=== PATIENT | male | born 2005 | race Two or more races ===

== ENCOUNTER 2024-10-30 02:02 | Emergency (ER) | payer OTHER ==
[~2024-10-30] VITALS: Ht 175.3 cm; Wt 71.8 kg
[2024-10-30 02:45] VITALS: BP 106/70; PULSE 107; RESP 14; TEMP 97.9; O2SAT 98
--- NOTE | 2024-10-30 03:05 | ED.PDOC ---
Back pain HPI HPI Comments PT CAME FROM HOME FOR LEFT HAND PAIN 03/16 STATUS POST INJURY, PT STATED "I WAS JUST MOVING SOME FURNITURE AROUND AND I HIT IT ON A WOOD DRAW" ABRASION AND EDEMA NOTED TO TOP LEFT HAND WITH BRUISE TO TOP HAND AND PALM, NO S/S OF BLEEDING NOTED, SKIN INTACT. DENIES NUMBNESS OR WEAKNESS. Chief Complaint: Upper Extremity Time Seen by MD: 02:03 Reviewed Notes: Nurses Notes, Medications, Allergies Home Meds Active Scripts Ibuprofen Micronized (Ibuprofen) 800 Mg Tab, 800 MG PO TID PRN for 7 Days, #21 TAB Prov:JOCELYNE ANDRADE CADD DRAFTER 10/30/24 Information Source: Patient Mode of Arrival: Ambulatory Past Medical History PAST MEDICAL HISTORY: Denies Surgical History: Denies all surgeries Family History Family History: Reviewed,noncontributory to illness Social History Smoker: Non-Smoker Alcohol: Denies ETOH Use Drugs: Denies Drug Use Constitutional: denies: chills, diaphoresis, fatigue, fever, malaise, sweats, weakness, others EENTM: denies: blurred vision, double vision, ear bleeding, ear discharge, ear drainage, ear pain, ear ringing, eye pain, eye redness, hearing loss, mouth pain, mouth swelling, nasal discharge, nose bleeding, nose congestion, nose pain, photophobia, tearing, throat pain, throat swelling, voice changes, others Respiratory: denies: cough, hemoptysis, orthopnea, SOB at rest, shortness of breath, SOB with excertion, stridor, wheezing, others Cardiovascular: denies: chest pain, dizzy spells, diaphoresis, Dyspnea on exertion, edema, irregular heart beat, left arm pain, lightheadedness, palpitations, PND, syncope, others Gastrointestinal: denies: abdomen distended, abdominal pain, blood streaked bowels, constipated, diarrhea, dysphagia, difficulty swallowing, hematemesis, melena, nausea, poor appetite, poor fluid intake, rectal bleeding, rectal pain, vomiting, others Genitourinary: denies: burning, dysuria, flank pain, frequency, hematuria, incontinence, penile discharge, penile sore, pain, testicle pain, testicle swelling, urgency, others Neurological: denies: dizziness, fainting, headache, left sided numbness, left sided weakness, numbness, paresthesia, pre-existing deficit, right sided numbness, right sided weakness, seizure, speech problems, tingling, tremors, weakness, others Musculoskeletal: reports: others (LEFT HAND PAIN); denies: back pain, gout, joint pain, joint swelling, muscle pain, muscle stiffness, neck pain Integumetry: denies: bruises, change in color, change in hair/nails, dryness, laceration, lesions, lumps, rash, wounds, others Allergic/Immunocompromised: denies: Difficulty Healing, Frequent Infections, Hives, Itching, others Hematologic/Lymphatic: denies: anemia, blood clots, easy bleeding, easy bruising, swollen glands, others Endocrine: denies: excessive hunger, excessive sweating, excessive thirst, excessive urination, flushing, intolerance to cold, intolerance to heat, unexplained weight gain, unexplained weight loss, others Psychiatric: denies: anxiety, bipolar disorder, depression, hopeless, panic disorder, schizophrenia, sleepless, suicidal, others Physical Exam General Appearance: No Apparent Distress, Normal HEENT: Normal ENT Inspection, Pharynx Normal, TMs Normal Neck: Full Range of Motion, Non-Tender Respiratory: Chest Non-Tender, Lungs Clear, No Accessory Muscle Use, No Respiratory Distress, Normal Breath Sounds Cardiovascular: No Murmur, Normal Peripheral Pulses, Regular Rate/Rhythm Breast Exam: Deferred Gastrointestinal: Non Tender, Soft Genitalia: Deferred Pelvic: Deferred Rectal: Deferred Extremities: Normal capillary refill, Normal inspection, Normal range of mo tion, Non-tender, No pedal edema Musculoskeletal : Location: Left Extremity Location: Hand (MODERATE EDEMA DORSAL ASPECT LEFT HAND WITH ECCHYMOSIS ON THE PALM MODERATE TENDERNESS OVER MID 5TH METACARPAL. STRENGTH SENSORY MOTION INTACT) Apperance: Normal Neurologic: Alert, advertising clerk II-XII nml as Tested, No Motor Deficits, Normal Affect, Normal Mood, No Sensory Deficits Cerebellar Function: Normal Reflexes: Normal Skin: Dry, Normal Color, Warm Lymphatic: No Adenopathy Was a procedure done? Was a procedure done?: No Back Pain Differential Dx Differential Diagnosis: Fracture, Musculoskeletal Pain X-Ray, Labs, Meds, VS Vital Signs Date Time Temp Pulse Resp B/P (MAP) Pulse Ox O2 Delivery O2 Flow Rate FiO2 10/30/24 02:45 107 14 98 Room Air 10/30/24 02:45 97.9 107 14 106/70 (82) 98 97.9 10/30/24 02:26 97.9 107 14 104/70 (81) 98 X-Ray, Labs, Meds, VS Comment INTERPRETED BY ME. DISPLACED 3RD METACARPAL SHAFT. PENDING RADIOLOGIST REPORT. PATIENT PLACED IN TEAR DROP SPLINT. SCRIPT IBUPROFEN. ADVISED TO FOLLOW UP WITH HAND REFERRAL INFORMATION GIVEN. ADVISED TO FOLLOW UP WITH PCP IN 1-2 DAYS IF FOR REFERRAL NEEDED FOR HAND ORTHO. ADVISED ON RICE. TAKE MEDICATIONS PRESCRIBED SIDE EFFECTS DISCUSSED. ER RETURN PRECAUTIONS GIVEN PATIENT INDICATES UNDERSTANDING AGREES WITH DISCHARGE PLAN OF CARE. Time of 1ST Reevaluation: 03:04 Reevaluation 1ST: Improved Patient Education/Counseling: Diagnosis, Treatment, Prognosis, Need For Follow Up Family Education/Counseling: No Family Present Departure 1 Departure Time of Disposition: 03:06 Impression: Primary Impression: Fracture of third metacarpal bone of left hand Qualified Codes: S62.323A - Displaced fracture of shaft of third metacarpal bone, left hand, initial encounter for closed fracture Disposition: 01 HOME / SELF CARE / HOMELESS Condition: Stable e-Prescriptions Ibuprofen Micronized (Ibuprofen) 800 Mg Tab 800 MG PO TID PRN for 7 Days, #21 TAB Prov: JOCELYNE ANDRADE 10/30/24 Discharged With: Relative (Mother) Critical Care Note Critical Care Time?: No Stability Stability form required: JOCELYNE Myers Oct 30, 2024 03:05
[2024-10-30] MEDS ORDERED: IBUP-1455 PO (03:08)
--- NOTE | 2024-10-30 04:24 | DVH ---
EXAM: XY L WRIST 3+ VIEW XRAY HISTORY: wrist pain COMPARISON: None TECHNIQUE: 3 views of the left wrist were performed. FINDINGS: See below. IMPRESSION: 1. Acute spiral fracture of the left 3rd metacarpal mid shaft with shortening, displacement, and mild angulation. 2. No other fractures are identified about the left wrist.
== END 2024-10-30 03:16 | disposition home or self-care (01) ==
LOC: ER 02:02
DX: S62.323A Displaced fracture of shaft of third metacarpal bone, left hand, initial encounter for closed fracture (principal); W22.8XXA Striking against or struck by other objects, initial encounter; Y93.89 Activity, other specified; Y92.89 Other specified places as the place of occurrence of the external cause; Y99.8 Other external cause status
CPT/HCPCS: 29125; 73110